=== PATIENT | female | born 1965 | race Caucasian/White ===

== ENCOUNTER 2016-08-24 09:55 | Emergency (ER) | payer OTHER ==
--- NOTE | 2016-08-24 10:27 | UC ---
Abdominal Pain Female HPI - HPI Summary HPI Summary: patient has had one week of nausea and epigastric pain. She has no hx of smoking , and family hx of aneurysm - History of Current Complaint Chief Complaint: UCAbdominalPain Stated Complaint: ABDOMINAL PAIN Hx Obtained From: Patient Hx Last Menstrual Period: February ?: No Onset/Duration: Sudden Onset, Lasting Days Timing: Constant Severity Initially: Moderate Severity Currently: Moderate Pain Intensity: 6 Pain Scale Used: 0-10 Numeric Location: Epigastric Radiates: Yes Radiates to: Back Character: Aching, Cramping Aggravating Factor(s): Food Alleviating Factor(s): Nothing Associated Signs and Symptoms: Positive: Decreased Appetite, Nausea - Risk Factors Ectopic Risk Factor: Negative Ovarian Torsion Risk Factor: Negative Allergies/Adverse Reactions: Allergies Allergy/AdvReac Type Severity Reaction Status Date / Time No Known Allergies Allergy Verified 08/24/16 10:12 Home Medications: Home Medications Levothyroxine TAB* [Synthroid TAB*] 125 mcg PO 0800 08/24/16 [History Confirmed 08/24/16] PMH/Surg Hx/FS Hx/Imm Hx Previously Healthy: Yes Endocrine History Of: Reports: Thyroid Disease - hypothyroid Cancer History Of: Denies: Breast Cancer - Surgical History Surgical History: Yes Surgery Procedure, Year, and Place: thyroidectomy, ectopic preg rupture with tube removal, , tumor removal from R wrist (benign) gallbladder - Family History Known Family History: Positive: Cardiac Disease, Other - father aneurysm, aortic - Social History Alcohol Use: None Substance Use Type: None Smoking Status (MU): Heavy Every Day Tobacco Smoker Type: Cigarettes Amount Used/How Often: 1/2 ppd Length of Time of Smoking/Using Tobacco: 30 yrs Have You Smoked in the Last Year: Yes - Immunization History Most Recent Tetanus Shot: unknown Review of Systems Constitutional: Negative Skin: Negative Eyes: Negative ENT: Negative Respiratory: Negative Cardiovascular: Palpitations Gastrointestinal: Abdominal Pain - epigastric, Vomiting Genitourinary: Negative Motor: Negative Neurovascular: Negative Musculoskeletal: Negative Neurological: Negative Psychological: Negative All Other Systems Reviewed And Are Negative: Yes Physical Exam Triage Information Reviewed: Yes Appearance: Well-Nourished, Ill-Appearing, Pain Distress Vital Signs: Initial Vital Signs Temp 98.2 F 08/24/16 10:07 Pulse 67 08/24/16 10:07 Resp 14 08/24/16 10:07 BP 111/73 08/24/16 10:07 Pulse Ox 98 08/24/16 10:07 Vital Signs Reviewed: Yes Eye Exam: Normal Eyes: Positive: Conjunctiva Clear ENT Exam: Normal ENT: Positive: Normal ENT inspection, Hearing grossly normal, Pharynx normal, TMs normal Dental Exam: Normal Neck exam: Normal Neck: Positive: Supple, Nontender, No Lymphadenopathy, Other: - no JVD Respiratory Exam: Normal Respiratory: Positive: Chest non-tender, Lungs clear, Normal breath sounds Abdominal Exam: Normal Abdomen Description: Positive: No Organomegaly, Soft, Pulsatile Mass - epigastric, tender on palpation, no bruits asculated, femoral pulses intact Bowel Sounds: Positive: Present Musculoskeletal Exam: Normal Musculoskeletal: Positive: Strength Intact, ROM Intact, No Edema Neurological Exam: Normal Neurological: Positive: Alert, Muscle Tone Normal Psychological Exam: Normal Skin Exam: Normal Skin: Positive: rashes Abd Pain Female Course/Dx - Course Course Of Treatment: hx obtained, exam performed, family hx of AAA, pulsating mass noted, did have palpitations a few days ago, has taken it easy since. She denies dizzyness or weakness, no fever, pain does radiate to the back, consulted with Dr Braxton, US ordered - normal, see report, ekg performed, and Upper and Lower extremity BP obtained. requested to follow up with general surgeon, omeprazole given for a few days to see if it relieves the symptoms. - Differential Dx/Diagnosis Differential Diagnosis: Abdominal Aortic Aneurysm, Diverticulitis, Gall Bladder Disease, Irritable Bowel Syndrome, Renal Colic, Urinary Tract Infection Provider Diagnoses: epigastric pain. palpitations Discharge - Discharge Plan Condition: Stable Disposition: HOME Patient Education Materials: Epigastric Pain (ED) Additional Instructions: follow up with your surgeon appointment, Your aorta was found to be of normal size, I have prescribed an acid vessel scrapper to see if it resolved the symptoms. Any increase in sympotms report to ER.
--- NOTE | 2016-08-24 10:36 | ED ---
Progress - Progress Note Progress Note: Upper abd pain and loss of appetite with eating. this is not new. she has an appt with her general surgeon in 5 days for these symptoms. he has taken out her Gb in the past. she denies fever, vomiting, melena. exam: pleasant. abd tender but only with deep palpation. there is pulsatile aorta that does not feel enlarged. no guarding. soft and flat. u/s of aorta and biliary tree. f/u with general surgeon. return to eED for any worsening of her symptoms. Course/Dx - Diagnoses Provider Diagnoses: Abdominal pain
[2016-08-24 10:55] VITALS: BP 118/77
--- NOTE | 2016-08-24 11:02 | RAD ---
INDICATION: Screening examination for abdominal aortic aneurysm. Abdominal pain COMPARISON: None TECHNIQUE: Limited longitudinal and transverse grayscale imaging was performed as part of a screening study. FINDINGS: Aorta: The aorta is normal in caliber. There are no significant atherosclerotic changes. The maximum transverse dimension of the aorta is 2.3 cm. Iliac vessels: The iliac vessels are normal in caliber. The right common iliac artery measures 1.0 x 0.9 cm and the left common iliac artery 0.9 x 1.0 in AP and transverse dimensions. Other: None IMPRESSION: NORMAL STUDY.
== END 2016-08-24 11:36 | disposition home or self-care (01) ==
LOC: UCCORT 09:55
DX: R10.13 Epigastric pain (principal); R00.2 Palpitations; E03.9 Hypothyroidism, unspecified; F17.210 Nicotine dependence, cigarettes, uncomplicated
CPT/HCPCS: 76706; 93005; 99212; G0463